=== PATIENT | male | born 1955 | race Caucasian/White ===

== ENCOUNTER → 2022-12-18 08:36 | Outpatient (CLI) | payer MEDICARE, SELFPAY ==
--- NOTE | ~2022-12-18 | XR_ITS ---
Lumbosacral Spine: AP and lateral views Clinical History: Pain Findings: There is extensive posterior spinal fusion hardware extending from L1 through S1, with bila teral rods and transpedicular screws present. Also mild compression deformities of T11 and T12. There is advanced degenerative disc narrowing at L1-L2. The sacroiliac joints are normally outlined. Impression: Extensive posterior fusion from L1 through S1. Possible mild compression injuries of T11 and T12. Reviewed, dictated and finalized at location . Impression: Extensive posterior fusion from L1 through S1. Possible mild compression injuries of T11 and T12.
== END ==
PROVIDERS: PCP Neurological Surgery; Visit Provider Neurological Surgery
DX: M54.50 Low back pain, unspecified (principal); Z98.1 Arthrodesis status
CPT/HCPCS: 72100